=== PATIENT | male | born 1975 | race Caucasian/White ===

== ENCOUNTER 2020-02-23 13:20 | Emergency (ER) | payer SELFPAY ==
[~2020-02-23] VITALS: Ht 180.3 cm; Wt 71.5 kg
[2020-02-23] MEDS ORDERED: DIAZEPAM 5 MG/ML, 2ML IV ONE (14:00)
[2020-02-23] MEDS ORDERED: ONDANSETRON 2MG/ML, 2ML IVPush ONE (14:00)
[2020-02-23] MEDS ORDERED: FAMOTIDINE 20 MG/2 ML IV ONE (14:00)
[2020-02-23] MEDS ORDERED: SODIUM CHLORIDE 0.9% 1,000ML IVBOLUS ONE ×2 (14:00→15:30)
[2020-02-23] MEDS ORDERED: DIAZEPAM 5 MG/ML, 2ML ONE ×2 (14:01→15:15)
[2020-02-23] MEDS ORDERED: FAMOTIDINE 20 MG/2 ML ONE (14:02)
[2020-02-23] MEDS ORDERED: ONDANSETRON 2MG/ML, 2ML ONE (14:02)
[2020-02-23 14:27] LABS: BASOPHILS % (AUTO) 1 % (0-1); EOSINOPHILS % (AUTO) 0 % (1-7); LYMPHOCYTES % (AUTO) 26 % (22-44); MEAN CORPUSCULAR HEMOGLOBIN 34.4 pg (27.5-34.5); MEAN PLATELET VOLUME 9.3 fL (7.4-10.4); MONOCYTES % (AUTO) 10 % (2-9); NEUTROPHILS % (AUTO) 62 % (42-75); PLATELET COUNT 91 x10^3/uL (130-400); RED BLOOD COUNT 4.31 x10^6/uL (4.38-5.82); RED CELL DISTRIBUTION WIDTH 13.5 % (9.4-14.8)
--- NOTE | 2020-02-23 14:28 | NUR ---
PT CAME IN CO OF ETOH WITHDRAWL AND A NON HEALING INJURY TO HIS RIGHT BIG TOE. PT STATES "I USED TO BE AN ALCOHOLIC AND I HAVE BEEN DOING GOOD UNTIL MY FRIENDS FROM OUT OF TOWN CAME TO VISIT AND WE DRANK FOR 3 DAYS" PT CO OF NAUSEA, VOMITTING, ABD PAIN. LABS SENT. PT MEDICATED PER JUN. WARM BLANKET PROVIDED.
[2020-02-23] MEDS ORDERED: PLEASE ENTER ALLERGIES MC SCH (14:30)
[2020-02-23 14:36] LABS: ALANINE AMINOTRANSFERASE 76 U/L (12-78); ALBUMIN 4.8 g/dL (3.4-5.0); ANION GAP 9 mmol/L (5-15); CALCIUM 9.1 mg/dL (8.5-10.1); CHLORIDE 99 mmol/L (98-107); CREATININE 0.87 mg/dL (0.7-1.3)
[2020-02-23 14:38] LABS: MICROSCOPIC INDICATED
[2020-02-23 14:39] LABS: ALKALINE PHOSPHATASE 135 U/L (45-117); BILIRUBIN,TOTAL 1.8 mg/dL (0.2-1.0); TOTAL PROTEIN 9.2 g/dL (6.4-8.2)
[2020-02-23 14:49] LABS: MD MORPH REVIEW ONLY
[2020-02-23 14:51] LABS: <PLATELET ESTIMATE> DECREASED; <PLT MORPHOLOGY> NORMAL PLT MORPH; OVALOCYTES 1+
[2020-02-23 15:19] VITALS: BP 150/91
[2020-02-23] MEDS ORDERED: DIAZEPAM 5 MG/ML, 10ML VIAL IV ONE (15:30)
== END 2020-02-23 16:24 | disposition home or self-care (01) ==
LOC: ED 15:50
DX: S92.424A Nondisplaced fracture of distal phalanx of right great toe, initial encounter for closed fracture (principal); K70.10 Alcoholic hepatitis without ascites; F10.239 Alcohol dependence with withdrawal, unspecified; F17.200 Nicotine dependence, unspecified, uncomplicated; Y90.9 Presence of alcohol in blood, level not specified; X58.XXXA Exposure to other specified factors, initial encounter; Y93.89 Activity, other specified; Y92.89 Other specified places as the place of occurrence of the external cause; Y99.8 Other external cause status
CPT/HCPCS: 36415; 73630; 80053; 80307; 81001; 83690; 85025; 96374; 96375; 96376; 99284; J2405; J3360; J7030